=== PATIENT | male | born 1985 | race Caucasian/White ===

== ENCOUNTER 2018-08-31 06:19 | Outpatient (CLI) | payer OTHER ==
[2018-08-31 14:21] LABS: #Basophils 0.1 thou/uL (0.0-0.2); #Eosinphils 0.5 thou/uL (0.0-0.7); #Lymphocytes 2.3 thou/uL (1.20-3.40); #Monocytes 0.6 thou/uL (0.11-0.59); #Neutrophils 3.8 thou/uL (1.40-6.50); %Basophils 0.8 % (0.0-1.0); %Eosinophils 6.2 % (0.0-10.0); %Lymphocytes 32.1 % (21.0-51.0); %Monocytes 8.7 % (0.0-10.0); %Neutrophils 52.2 % (42.0-75.0); Hemoglobin 14.7 g/dL (14.0-18.0); Mean Corpuscular HGB CONC 33.2 g/dL (32.0-36.0); Mean Corpuscular Hemoglobin 29.7 pg (27.0-31.0); Mean Corpuscular Volume 89.6 fL (78.0-98.0); Mean Platelet Volume 6.7 fL (7.4-10.4); Platelet Count 242 thou/uL (130-400); RBC Distribution Width 11.8 % (11.5-14.5); Red Blood Cell (RBC) Count 4.93 mill/uL (4.70-6.10); White Blood Cell (WBC) Count 7.3 thou/uL (4.8-10.8)
== END 2018-08-31 06:20 | disposition home or self-care (01) ==
LOC: LABBT 06:19
PROVIDERS: ATTEND Orthopaedic Surgery
DX: Z01.812 Encounter for preprocedural laboratory examination (principal); S29.011A Strain of muscle and tendon of front wall of thorax, initial encounter
CPT/HCPCS: 85025

== ENCOUNTER 2018-09-02 10:07 | Day surgery (SDC) | payer OTHER ==
[2018-09-02] MEDS ORDERED: Fentanyl 100 MCG/2 ML VIAL ONE ×2 (11:49→13:04)
[2018-09-02] MEDS ORDERED: Calcium Chloride 1 GM/10 ML Abboject SYRINGE ONE (12:16)
[2018-09-02] MEDS ORDERED: Thrombin 5000 UNITS/5 ML VIAL ONE (12:16)
[2018-09-02] MEDS ORDERED: CEFAZOLIN 2 GM/50 ML BAG ONE (12:25)
[2018-09-02] MEDS ORDERED: Bupivacaine HCl 0.5%/Epinephrine 1:200,000/PF 30 ml Vial ONE (12:58)
--- NOTE | 2018-09-03 15:01 | OP ---
DATE OF PROCEDURE: PREOPERATIVE DIAGNOSIS: Left pectoralis major tear. POSTOPERATIVE DIAGNOSIS: Left pectoralis major sternocostal head tear PROCEDURE PERFORMED: Pectoralis major repair. RN FLIGHT: Florina Michelle PA-C ANESTHESIOLOGIST: Nathanael. ANESTHESIA: The patient received a general endotracheal intubation with 30 mL of 0.5% Marcaine withepinephrine. ESTIMATED BLOOD LOSS: 75 mL TOURNIQUET TIME: None. IMPLANTS: An Arthrex pectoralis major repair kit with three #5 Ethibond and three large eyelet buttons. ANTIBIOTICS: Ancef 2 g. COMPLICATIONS: None. HISTORY OF PRESENT ILLNESS: Mr. 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 The patient presents after performing a bench press and hearing a pop. The patient had an MRI that had been showing a 2.5 cm retraction of his pectoralis major tendon. I discussed with the patient the risks and benefits of surgery for repair to include pain, scar, bleeding, infection, fracture, need for further surgery, failure of procedure, continued pain despite surgical intervention. The patient understood the risks and benefits of the procedure and elected to proceed. DESCRIPTION OF PROCEDURE: After time-out was performed designating the patient' s left upper extremity as the operative site, based on site, consents and markings , he was placed in beach chair position. The left upper extremity was prepped and draped in sterile fashion and a deltopectoral incision was made, which was followed down. I came down through the skin to muscle. I used the coracoid as my basis to try to find my deltopectoral interval. The patient did not have a large cephalic vein to dissect in between. It took me a second to find what I thought was cephalic vein because the patient's, upon later reference the pectoralis major clavicular head was still intact. After I found the fat stripe, I was able to follow it down. I then dissected above the conjooint where the tendon was retracted, biceps ____ the footprint for the patient's pectoralis major sternocostal head. I then found the sternocostal head, I cleaned off the footprint. I used cautery to elevate the fascial plane remnant to drape over the biceps to act as a buttress piece between the tendon and reinsertion. I then used #5 Ethibond, passed 4 whipstitches up and down with each suture through the tendon, which was a nice healthy tendon. It was still attached on the undersurface to the clavicular head of the pec. I ensured that there were no other fibers and good placement for insertion. I then drilled three holes, which I put a little off-center to ensure that I did not have any stress risers. I used a torito to rough up cortex. I then passed through the eyelets of the suture buttons. I passed all three into the bone and then sequentially tied them into place. After tying them, I passed tieds knots on top and used one limb from each to tie, oversewed each other to ensure that they would not unravel and cut all three ends. I then washed. I closed with 0, #1, 2-0 and cl. The patient received 10 mL of Marcaine within the deltopectoral interval and 20 mL subcu. The patient had soft tissue dressings placed, sling in place. He will stay in the sling for 2 weeks. He could begin hydrocodone for pain relief. The patient will follow up with me in 2 weeks and begin range of motion. Job ID: [id number] [facility] [place]
== END 2018-09-02 16:15 | disposition home or self-care (01) ==
LOC: SDC 10:07
PROVIDERS: ATTEND Orthopaedic Surgery
PROC: 0LM Tendons, Reattachment (ICD-10-PCS; principal; 2018-09-02)
DX: S29.011A Strain of muscle and tendon of front wall of thorax, initial encounter (principal); Z79.899 Other long term (current) drug therapy; X50.0XXA Overexertion from strenuous movement or load, initial encounter
CPT/HCPCS: J0670; J3010